=== PATIENT | male | born 2000 | race Caucasian/White ===

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

== ENCOUNTER 2021-02-07 10:26 | Emergency (ER) | payer OTHER, SELFPAY ==
[~2021-02-07] VITALS: Ht 170.2 cm; Wt 75.0 kg
[2021-02-07 11:04] LABS: HEMATOCRIT 53.5 % (42.0-52.0); HEMOGLOBIN 17.9 g/dl (13.5-17.5); MEAN CORPUSCULAR HEMOGLOBIN 28.8 pg (27.0-33.0); MEAN CORPUSCULAR HGB CONC 33.5 g/dl (32.0-36.5); PLATELET COUNT, AUTOMATED 258 10^3/uL (150-450); RED BLOOD COUNT 6.22 10^6/uL (4.30-6.10); WHITE BLOOD COUNT 7.8 10^3/uL (4.0-10.0)
[2021-02-07 11:34] LABS: AMPHETAMINES LEVEL URINE NEGATIVE (NEGATIVE); BARBITURATES URINE NEGATIVE (NEGATIVE); BENZODIAZEPINES URINE NEGATIVE (NEGATIVE); CANNABINOIDS URINE POSITIVE (NEGATIVE); COCAINE METABOLITE URINE POSITIVE (NEGATIVE); METHADONE URINE NEGATIVE (NEGATIVE); OPIATES URINE NEGATIVE (NEGATIVE); PHENCYCLIDINE URINE NEGATIVE (NEGATIVE)
[2021-02-07 11:40] LABS: ACETAMINOPHEN LEVEL < 2.0 UG/ML (10.0-30.0); ALBUMIN 4.5 GM/DL (3.2-5.2); ALT/SGPT 210 U/L (12-78); BILIRUBIN,DIRECT 0.2 MG/DL (0.0-0.2); BILIRUBIN,TOTAL 0.5 MG/DL (0.2-1.0); BLOOD UREA NITROGEN 9 MG/DL (7-18); CARBON DIOXIDE LEVEL 31 MEQ/L (21-32); CHLORIDE LEVEL 105 MEQ/L (98-107); CREATININE FOR GFR 0.92 MG/DL (0.70-1.30); ETHYL ALCOHOL (ETHANOL) 0.231 % (0.000-0.010); GLUCOSE, FASTING 83 MG/DL (70-100); POTASSIUM SERUM 4.8 MEQ/L (3.5-5.1); SALICYLATE LEVEL 2.4 MG/DL (5.0-30.0); SODIUM LEVEL 143 MEQ/L (136-145); TOTAL PROTEIN 7.9 GM/DL (6.4-8.2)
[2021-02-07 18:20] VITALS: BP 146/95
== END 2021-02-07 18:24 | disposition home or self-care (01) ==
LOC: M ED 10:26
DX: F10.129 Alcohol abuse with intoxication, unspecified (principal); G40.909 Epilepsy, unspecified, not intractable, without status epilepticus; F17.200 Nicotine dependence, unspecified, uncomplicated; Z79.899 Other long term (current) drug therapy

== ENCOUNTER 2022-09-26 02:42 | Inpatient (IN) | payer OTHER, SELFPAY ==
[~2022-09-26] VITALS: Ht 167.6 cm; Wt 71.1 kg
[2022-09-26] VITALS (15 sets, daily range): BP systolic 106–128; BP diastolic 63–88
[2022-09-26] MEDS ORDERED: ROCURONIUM BROMIDE 50MG/5ML VIAL IV ONE (02:50)
[2022-09-26] MEDS ORDERED: ETOMIDATE INJ 20MG/10ML VIAL IV ONE (02:50)
[2022-09-26 03:41] LABS: BASO # 0.2 10^3/uL (0.0-0.2); BASO % 0.6 % (0.0-1.0); EOS # 0.2 10^3/uL (0.0-0.5); EOS % 0.6 % (0.0-3.0); HEMATOCRIT 58.1 % (42.0-52.0); HEMOGLOBIN 17.5 g/dl (13.5-17.5); MEAN CORPUSCULAR HEMOGLOBIN 29.2 pg (27.0-33.0); MEAN CORPUSCULAR HGB CONC 30.1 g/dl (32.0-36.5); MEAN CORPUSCULAR VOLUME 96.8 fl (80.0-96.0); MONO % 5.8 % (2.0-8.0); PLATELET COUNT, AUTOMATED 352 10^3/uL (150-450)
[2022-09-26 03:57] LABS: MONO # 1.8 10^3/uL (0.0-0.8); WHITE BLOOD COUNT 30.8 10^3/uL (4.0-10.0)
[2022-09-26 04:00] LABS: AMPHETAMINES LEVEL URINE NEGATIVE (NEGATIVE); BARBITURATES URINE NEGATIVE (NEGATIVE)
[2022-09-26 04:01] LABS: CANNABINOIDS URINE NEGATIVE (NEGATIVE); COCAINE METABOLITE URINE NEGATIVE (NEGATIVE); METHADONE URINE NEGATIVE (NEGATIVE); OPIATES URINE NEGATIVE (NEGATIVE); PHENCYCLIDINE URINE NEGATIVE (NEGATIVE)
[2022-09-26 04:04] LABS: ETHYL ALCOHOL (ETHANOL) < 0.003 % (0.000-0.010)
[2022-09-26 04:05] LABS: ACETAMINOPHEN LEVEL < 2.0 UG/ML (10.0-20.0); SALICYLATE LEVEL < 3.0 MG/DL (<30)
[2022-09-26 04:09] LABS: ALBUMIN 5.1 G/DL (3.2-5.2); ALKALINE PHOSPHATASE 145 U/L (46-116); ALT/SGPT 33 U/L (7.0-40); AST/SGOT 44 U/L (<34); BILIRUBIN,DIRECT < 0.1 MG/DL (<0.4); BILIRUBIN,TOTAL 0.3 MG/DL (0.3-1.2); BLOOD UREA NITROGEN 22 MG/DL (9-23); CALCIUM LEVEL 9.7 MG/DL (8.5-10.1); CARBON DIOXIDE LEVEL 12 MMOL/L (20-31); CHLORIDE LEVEL 97 MMOL/L (98-107); CK-MB VALUE MASS 1.3 NG/ML (<3.6); CREATININE FOR GFR 1.72 MG/DL (0.70-1.30); GLOMERULAR FILTRATION RATE 53.2 (>60); GLUCOSE, FASTING 202 MG/DL (60-100); SODIUM LEVEL 137 MMOL/L (136-145); THYROID STIMULATING HORMONE 4.369 uIU/ML (0.55-4.78); TOTAL PROTEIN 8.6 G/DL (5.7-8.2)
[2022-09-26 04:13] LABS: BENZODIAZEPINES URINE POSITIVE (NEGATIVE)
[2022-09-26 04:13] LABS: CPK CREATINE PHOSPHOKINASE 352 U/L (46-171); MB/CK RELATIVE INDEX 0.36 (< OR =4)
[2022-09-26 04:17] LABS: OSMOLALITY SERUM 321 MOSM/KG (275-295)
[2022-09-26] MEDS ORDERED: propofoL 1,000 MG in IV 1 EA IV SCH (04:30)
[2022-09-26] MEDS ORDERED: NS 2,140 ML in IV 1 EA IV ONE (04:30)
[2022-09-26 04:31] LABS: ABG BASE EXCESS -16.5 (-2.0-2.0); ABG HCO3 17.4 MEQ/L (22.0-26.0); ABG O2 SATURATION 76.7 % (95.0-99.0); ABG PARTIAL PRESSURE O2 59.1 mmHg (75.0-100.0); ABG STANDARD HCO3 12.3 MEQ/L (22.0-26.0); ABG TOTAL CO2 19.8 MEQ/L (22.0-29.0)
[2022-09-26 04:34] LABS: ABG PARTIAL PRESSURE CO2 78.6 mmHg (35.0-45.0); ABG pH (ARTERIAL) 6.963 UNITS (7.350-7.450)
[2022-09-26 04:37] LABS: RSV AMPLIFICATION NEGATIVE (NEGATIVE)
[2022-09-26] MEDS ORDERED: PIPERACILLIN/TAZOBACTAM SOD 3.375 GM in D5W MINI-BAG PLUS 50 ML IV ONE (05:00)
[2022-09-26] MEDS ORDERED: MIDAZOLAM INJ 2MG/2ML VIAL IV ONE (05:30)
[2022-09-26] MEDS ORDERED: MIDAZOLAM 100MG/100ML-0.9%NACL 100 MG in IV 1 EA IV SCH (05:30)
[2022-09-26] MEDS ORDERED: MIDAZOLAM 5MG/ML 1ML VIAL As Ordered ONE (05:30)
[2022-09-26] MEDS ORDERED: LEVE500T5 PO (05:59)
[2022-09-26] MEDS ORDERED: NS 1,000 ML IV SCH (06:00)
[2022-09-26] MEDS ORDERED: GLUCOSE 4GM CHEW TABLET PO PRN (06:00)
[2022-09-26] MEDS: INSULIN LISPRO (NovoLOG) PER UNIT SC SCH ×4 (06:00→23:45)
[2022-09-26] MEDS ORDERED: GLUCAGON INJ 1MG VIAL SC PRN (06:00)
[2022-09-26] MEDS ORDERED: DEXTROSE 50% 50ML SYRINGE IV PRN (06:00)
[2022-09-26] MEDS ORDERED: HOME MED LIST COMPLETE! XX SCH (06:00)
[2022-09-26] MEDS ORDERED: SODIUM BICARBONATE 8.4% INJ 50ML SYRINGE IV STA (06:20)
[2022-09-26] MEDS ORDERED: SODIUM BICARBONATE 150 MEQ in STERILE WATER LITER BAG 1,000 ML IV SCH (07:00)
[2022-09-26] MEDS ORDERED: levETIRAcetam INJection 1,000 MG in D5W 100 ML IV ONE (07:00)
[2022-09-26 08:39] LABS: ABG BASE EXCESS -2.9 (-2.0-2.0); ABG HCO3 22.9 MEQ/L (22.0-26.0); ABG O2 SATURATION 98.1 % (95.0-99.0); ABG PARTIAL PRESSURE CO2 43.4 mmHg (35.0-45.0); ABG STANDARD HCO3 22.1 MEQ/L (22.0-26.0); ABG TOTAL CO2 24.2 MEQ/L (22.0-29.0)
[2022-09-26] MEDS: CHLORHEXIDINE GLUCONATE 0.12 % 15ML UDC (PERIDEX ORAL RINSE) MT SCH ×2 (09:29→21:39)
[2022-09-26] MEDS: PANTOPRAZOLE 40MG VIAL IV SCH (09:29)
[2022-09-26] MEDS ORDERED: ROCURONIUM BROMIDE 50MG/5ML VIAL ONE (09:30)
[2022-09-26] MEDS ORDERED: ETOMIDATE INJ 20MG/10ML VIAL ONE (09:30)
[2022-09-26] MEDS: MIDAZOLAM 100MG/100ML-0.9%NACL 100 MG in IV 1 EA IV SCH (09:32)
[2022-09-26] MEDS: propofoL 1,000 MG in IV 1 EA IV SCH ×3 (09:33→20:07)
[2022-09-26 09:57] LABS: CALCIUM LEVEL 7.4 MG/DL (8.5-10.1); CREATININE FOR GFR 1.73 MG/DL (0.70-1.30); GLOMERULAR FILTRATION RATE 52.8 (>60); POTASSIUM SERUM 4.4 MMOL/L (3.5-5.1)
[2022-09-26] MEDS: D5W/0.9% SODIUM CHLORIDE 1,000 ML IV SCH (11:43)
[2022-09-26] MEDS: PIPERACILLIN/TAZOBACTAM SOD 4.5 GM in D5W MINI-BAG PLUS 50 ML IV SCH ×3 (11:43→23:39)
[2022-09-26] MEDS ORDERED: FOMEPIZOLE IV ONE (12:00)
[2022-09-26] MEDS ORDERED: NS IV ONE (12:00)
[2022-09-26] MEDS ORDERED: VANCOMYCIN HCL 750 MG, VIAL MATE ADAPTER 1 EACH in D5W 250 ML IV ONE ×2 (13:00→14:00)
[2022-09-26] MEDS: HEPARIN SOD (PORCINE) 5000UNITS/ML 1ML VIAL/SYRINGE SC SCH ×2 (14:31→22:00)
[2022-09-26 14:56] LABS: ABG BASE EXCESS 0.9 (-2.0-2.0); ABG O2 SATURATION 98.3 % (95.0-99.0); ABG PARTIAL PRESSURE CO2 43.5 mmHg (35.0-45.0); ABG PARTIAL PRESSURE O2 110.4 mmHg (75.0-100.0); ABG STANDARD HCO3 25.3 MEQ/L (22.0-26.0); ABG TOTAL CO2 27.4 MEQ/L (22.0-29.0); ABG pH (ARTERIAL) 7.395 UNITS (7.350-7.450)
[2022-09-26 14:58] LABS: HEMATOCRIT 39.2 % (42.0-52.0); HEMOGLOBIN 13.1 g/dl (13.5-17.5); MEAN CORPUSCULAR HEMOGLOBIN 29.6 pg (27.0-33.0); MEAN CORPUSCULAR HGB CONC 33.4 g/dl (32.0-36.5); MEAN CORPUSCULAR VOLUME 88.5 fl (80.0-96.0); RED BLOOD COUNT 4.43 10^6/uL (4.30-6.10); WHITE BLOOD COUNT 9.9 10^3/uL (4.0-10.0)
[2022-09-26] MEDS ORDERED: MULTIVITAMIN -ADULT INJECTION 10 ML, THIAMINE INJection 100 MG, FOLIC ACID 1 MG in NS 1... IV ONE (15:00)
[2022-09-26 15:01] LABS: PLATELET COUNT, AUTOMATED 201 10^3/uL (150-450)
[2022-09-26 15:36] LABS: BILIRUBIN,TOTAL 0.5 MG/DL (0.3-1.2); CALCIUM LEVEL 7.5 MG/DL (8.5-10.1); CREATININE FOR GFR 2.25 MG/DL (0.70-1.30); MAGNESIUM LEVEL 2.4 MG/DL (1.8-2.4); POTASSIUM SERUM 3.8 MMOL/L (3.5-5.1)
[2022-09-26] MEDS ORDERED: FUROSEMIDE 100MG/10ML VIAL IV ONE (15:55)
[2022-09-26] MEDS ORDERED: MIDAZOLAM INJ 2MG/2ML VIAL IV PRN (18:35)
[2022-09-26] MEDS: levETIRAcetam INJection 750 MG in D5W 100 ML IV SCH (21:39)
[2022-09-26] MEDS: VANCOMYCIN HCL 750 MG, VIAL MATE ADAPTER 1 EACH in D5W 250 ML IV SCH (22:00)
[2022-09-27] VITALS (19 sets, daily range): BP systolic 106–165; BP diastolic 62–99
[2022-09-27] MEDS ORDERED: FOMEPIZOLE IV SCH ×2
[2022-09-27] MEDS ORDERED: NS IV SCH ×2
[2022-09-27] MEDS: propofoL 1,000 MG in IV 1 EA IV SCH (03:17)
[2022-09-27] MEDS: D5W/0.9% SODIUM CHLORIDE 1,000 ML IV SCH ×6 (03:17→23:36)
[2022-09-27] MEDS: PIPERACILLIN/TAZOBACTAM SOD 4.5 GM in D5W MINI-BAG PLUS 50 ML IV SCH (05:29)
[2022-09-27] MEDS: HEPARIN SOD (PORCINE) 5000UNITS/ML 1ML VIAL/SYRINGE SC SCH ×3 (05:29→22:00)
[2022-09-27] MEDS: INSULIN LISPRO (NovoLOG) PER UNIT SC SCH ×3 (06:00→16:54)
[2022-09-27 06:17] LABS: CALCIUM LEVEL 7.9 MG/DL (8.5-10.1); CREATININE FOR GFR 3.46 MG/DL (0.70-1.30); GLOMERULAR FILTRATION RATE 23.7 (>60); POTASSIUM SERUM 3.7 MMOL/L (3.5-5.1)
[2022-09-27 06:29] LABS: ABG BASE EXCESS -1.2 (-2.0-2.0); ABG HCO3 24.5 MEQ/L (22.0-26.0); ABG PARTIAL PRESSURE CO2 44.4 mmHg (35.0-45.0); ABG PARTIAL PRESSURE O2 105.8 mmHg (75.0-100.0); ABG STANDARD HCO3 23.5 MEQ/L (22.0-26.0); ABG TOTAL CO2 25.8 MEQ/L (22.0-29.0); ABG pH (ARTERIAL) 7.359 UNITS (7.350-7.450)
[2022-09-27] MEDS: MIDAZOLAM 100MG/100ML-0.9%NACL 100 MG in IV 1 EA IV SCH (08:08)
[2022-09-27] MEDS: CHLORHEXIDINE GLUCONATE 0.12 % 15ML UDC (PERIDEX ORAL RINSE) MT SCH (09:21)
[2022-09-27] MEDS: VANCOMYCIN HCL 750 MG, VIAL MATE ADAPTER 1 EACH in D5W 250 ML IV SCH ×2 (09:21→11:19)
[2022-09-27] MEDS: PANTOPRAZOLE 40MG VIAL IV SCH (09:21)
[2022-09-27] MEDS: levETIRAcetam INJection 750 MG in D5W 100 ML IV SCH ×2 (09:21→22:22)
[2022-09-27 09:53] LABS: HEMATOCRIT 44.3 % (42.0-52.0); HEMOGLOBIN 14.4 g/dl (13.5-17.5); MEAN CORPUSCULAR HEMOGLOBIN 29.4 pg (27.0-33.0); MEAN CORPUSCULAR HGB CONC 32.5 g/dl (32.0-36.5); MEAN CORPUSCULAR VOLUME 90.4 fl (80.0-96.0); PLATELET COUNT, AUTOMATED 176 10^3/uL (150-450); WHITE BLOOD COUNT 9.7 10^3/uL (4.0-10.0)
[2022-09-27] MEDS: PIPERACILLIN/TAZOBACTAM SOD 3.375 GM in D5W MINI-BAG PLUS 50 ML IV SCH ×3 (11:57→23:36)
[2022-09-27] MEDS ORDERED: dexmedeTOMidine 200 MCG in IV 1 EA IV SCH (12:15)
[2022-09-27 16:29] LABS: CALCIUM LEVEL 6.8 MG/DL (8.5-10.1); CREATININE FOR GFR 3.75 MG/DL (0.70-1.30); GLOMERULAR FILTRATION RATE 21.6 (>60); POTASSIUM SERUM 3.9 MMOL/L (3.5-5.1)
[2022-09-28] VITALS (7 sets, daily range): BP systolic 121–158; BP diastolic 65–99
[2022-09-28] MEDS: D5W/0.9% SODIUM CHLORIDE 1,000 ML IV SCH ×3 (05:12→18:40)
[2022-09-28] MEDS: PIPERACILLIN/TAZOBACTAM SOD 3.375 GM in D5W MINI-BAG PLUS 50 ML IV SCH (05:17)
[2022-09-28] MEDS: HEPARIN SOD (PORCINE) 5000UNITS/ML 1ML VIAL/SYRINGE SC SCH ×3 (05:17→21:21)
[2022-09-28 07:41] LABS: ALBUMIN 2.5 G/DL (3.2-5.2); BILIRUBIN,TOTAL 0.7 MG/DL (0.3-1.2); CALCIUM LEVEL 7.8 MG/DL (8.5-10.1); CREATININE FOR GFR 5.23 MG/DL (0.70-1.30); GLOMERULAR FILTRATION RATE 14.7 (>60); POTASSIUM SERUM 3.5 MMOL/L (3.5-5.1); TOTAL PROTEIN 4.8 G/DL (5.7-8.2)
[2022-09-28] MEDS: levETIRAcetam INJection 750 MG in D5W 100 ML IV SCH ×2 (09:58→20:59)
[2022-09-28] MEDS: PANTOPRAZOLE 40MG VIAL IV SCH (09:58)
[2022-09-28] MEDS ORDERED: ACETAMINOPHEN TAB 650MG DOSE (2X325MG) PO ONE (21:15)
[2022-09-29] VITALS: BP 142/94
[2022-09-29] MEDS: D5W/0.9% SODIUM CHLORIDE 1,000 ML IV SCH ×2 (02:57→08:45)
[2022-09-29] MEDS: HEPARIN SOD (PORCINE) 5000UNITS/ML 1ML VIAL/SYRINGE SC SCH ×3 (05:51→21:51)
[2022-09-29] MEDS ORDERED: ALBUTEROL SULFATE 2.5MG/0.5ML INH NEB SOLN NEB PRN (06:15)
[2022-09-29 07:23] LABS: HEMATOCRIT 40.1 % (42.0-52.0); HEMOGLOBIN 13.4 g/dl (13.5-17.5); MEAN CORPUSCULAR HEMOGLOBIN 29.3 pg (27.0-33.0); MEAN CORPUSCULAR HGB CONC 33.4 g/dl (32.0-36.5); MEAN CORPUSCULAR VOLUME 87.7 fl (80.0-96.0); PLATELET COUNT, AUTOMATED 146 10^3/uL (150-450); RED BLOOD COUNT 4.57 10^6/uL (4.30-6.10); WHITE BLOOD COUNT 8.3 10^3/uL (4.0-10.0)
[2022-09-29 07:56] LABS: ALBUMIN 2.7 G/DL (3.2-5.2); BILIRUBIN,TOTAL 0.9 MG/DL (0.3-1.2); CALCIUM LEVEL 7.7 MG/DL (8.5-10.1); CREATININE FOR GFR 4.89 MG/DL (0.70-1.30); GLOMERULAR FILTRATION RATE 15.9 (>60); TOTAL PROTEIN 5.2 G/DL (5.7-8.2)
[2022-09-29 08:00] VITALS: BP 143/89
[2022-09-29] MEDS: PANTOPRAZOLE 40MG VIAL IV SCH (08:45)
[2022-09-29] MEDS: levETIRAcetam INJection 750 MG in D5W 100 ML IV SCH (08:45)
[2022-09-29] MEDS: ALBUTEROL 90 MCG/ACT 8GM HFA INHALER INH PRN ×2 (09:34→20:55)
[2022-09-29 12:00] VITALS: BP 149/86
[2022-09-29] MEDS ORDERED: guaiFENesin 200 MG TAB PO PRN (12:15)
[2022-09-29] MEDS: ACETAMINOPHEN TAB 650MG DOSE (2X325MG) PO PRN (15:13)
[2022-09-29 16:00] VITALS: BP 134/77
[2022-09-29 16:09] LABS: ACETONE <.010 g/dL (0.000-0.010); ISOPROPANOL <.010 g/dL (0.000-0.010); METHANOL <.010 g/dL (0.000-0.010)
[2022-09-29] MEDS: levETIRAcetam 250MG TABLET (KEPPRA) PO SCH (20:21)
[2022-09-29 20:23] VITALS: BP 136/80
[2022-09-30 00:03] VITALS: BP 146/90
[2022-09-30 03:37] VITALS: BP 149/79
[2022-09-30] MEDS: ACETAMINOPHEN TAB 650MG DOSE (2X325MG) PO PRN (03:39)
[2022-09-30 04:47] LABS: HEMATOCRIT 35.3 % (42.0-52.0); HEMOGLOBIN 11.9 g/dl (13.5-17.5); MEAN CORPUSCULAR HEMOGLOBIN 28.5 pg (27.0-33.0); MEAN CORPUSCULAR HGB CONC 33.7 g/dl (32.0-36.5); MEAN CORPUSCULAR VOLUME 84.7 fl (80.0-96.0); PLATELET COUNT, AUTOMATED 216 10^3/uL (150-450); RED BLOOD COUNT 4.17 10^6/uL (4.30-6.10); WHITE BLOOD COUNT 9.3 10^3/uL (4.0-10.0)
[2022-09-30 05:19] LABS: ALBUMIN 2.5 G/DL (3.2-5.2); BILIRUBIN,TOTAL 0.6 MG/DL (0.3-1.2); CALCIUM LEVEL 7.9 MG/DL (8.5-10.1); CREATININE FOR GFR 4.28 MG/DL (0.70-1.30); GLOMERULAR FILTRATION RATE 18.6 (>60); MAGNESIUM LEVEL 1.6 MG/DL (1.8-2.4); POTASSIUM SERUM 3.6 MMOL/L (3.5-5.1); TOTAL PROTEIN 4.9 G/DL (5.7-8.2)
[2022-09-30] MEDS: HEPARIN SOD (PORCINE) 5000UNITS/ML 1ML VIAL/SYRINGE SC SCH (05:53)
[2022-09-30] MEDS ORDERED: MAG SULF 1GM/100ML (MAG RUN) 1 GM in IV 1 EA IV SCH (06:00)
[2022-09-30] MEDS ORDERED: MAGNESIUM OXIDE 400MG TAB (MAG-OX) PO ONE (07:15)
[2022-09-30 08:00] VITALS: BP 152/86
[2022-09-30] MEDS: levETIRAcetam 250MG TABLET (KEPPRA) PO SCH (08:47)
[2022-09-30] MEDS ORDERED: PANTOPRAZOLE 40MG TAB (PROTONIX) PO SCH (09:00)
[2022-09-30] MEDS: ALBUTEROL 90 MCG/ACT 8GM HFA INHALER INH PRN (12:26)
== END 2022-09-30 12:55 | disposition home or self-care (01) | DRG 133 ==
LOC: M ED 02:42 → EDBD 02:42 → M ED INP 06:10 → M ICU 08:07
PROVIDERS: ADMIT Internal Medicine; ATTEND Internal Medicine
PROC: 5A1945Z Respiratory Ventilation, 24-96 Consecutive Hours (ICD-10-PCS; principal; 2022-09-26)
DX: J96.01 Acute respiratory failure with hypoxia (principal); U07.1 COVID-19; N17.0 Acute kidney failure with tubular necrosis; G93.41 Metabolic encephalopathy; E72.20 Disorder of urea cycle metabolism, unspecified; E87.29 Other acidosis; M62.82 Rhabdomyolysis; G40.909 Epilepsy, unspecified, not intractable, without status epilepticus; J45.909 Unspecified asthma, uncomplicated; R60.0 Localized edema; R74.01 Elevation of levels of liver transaminase levels; R73.9 Hyperglycemia, unspecified; J96.02 Acute respiratory failure with hypercapnia